=== PATIENT | male | born 1970 | race Caucasian/White ===

== ENCOUNTER 2016-03-01 18:18 | Emergency (ER) | payer MEDICAID ==
[~2016-03-01] VITALS: Ht 167.6 cm; Wt 59.5 kg
[~2016-03-01 18:18] MED LIST: FURO20TA PO; LACT20SO12 PO; LANT3I SC; MULTI PO; PANT40TA3 PO; SPIR50TA PO
[2016-03-01 18:40] VITALS: Ht 167.6 cm; Wt 59.5 kg
--- NOTE | 2016-03-01 20:19 | ERD ---
ER Documentation Chief Complaint Date/Time DATE: 03/01/16 TIME: 20:14 Chief Complaint right index finger laceration HPI This patient is a [id number] 45-year-old male with history of diabetes presenting to the emergency department for right second finger laceration which occurred while he was putting on a spare tire today around 4 PM. Patient's tetanus is not up-to-date. There is bleeding after the incident occurred but the patient was able to control it with pressure. He denies any numbness, tingling, loss of function, or other symptoms at this time. ROS All systems reviewed and are negative except as per history of present illness. Medications Home Meds Active Scripts Pantoprazole* (Protonix*) 40 Mg Tablet.dr, 40 MG PO BID for 30 Days, TAB Prov:JAMAL MORALES NP 01/15/16 Multivitamins* (Theragran*) 1 Tab Tab, 1 TAB PO DAILY for 30 Days, TAB Prov:JAMAL MORALES NP 01/15/16 Insulin Glargine* (Lantus*) 100 Unit/Ml Soln, 18 UNIT SC QHS for 30 Days, #1 VIAL Prov:JAMAL MORALES NP 01/15/16 Furosemide* (Lasix*) 20 Mg Tablet, 20 MG PO DAILY for 30 Days, TAB Prov:JAMAL MORALES NP 01/15/16 Spironolactone* (Aldactone*) 50 Mg Tablet, 50 MG PO DAILY for 30 Days, TAB Prov:JAMAL MORALES NP 01/15/16 Lactulose* (Cephulac*) 20 Gm/30 Ml Soln, 20 GM PO Q8 for 30 Days Prov:JAMAL MORALES NP 01/15/16 Allergies Allergies: Coded Allergies: No Known Allergy (Unverified , 03/01/16) PMhx/Soc History of Surgery: No Anesthesia Reaction: No Hx Neurological Disorder: No Hx Respiratory Disorders: No Hx Cardiac Disorders: No Hx Psychiatric Problems: No Hx Miscellaneous Medical Probl: Yes (DM) Hx Alcohol Use: Yes Hx Substance Use: No Hx Tobacco Use: Yes (2 t0 3 cigs a day) Smoking Status: Unknown if ever smoked FmHx Noncontributory for chief complaint Physical Exam Vitals Vital Signs Date Time Temp Pulse Resp B/P Pulse Ox O2 Delivery O2 Flow Rate FiO2 03/01/16 18:40 97.2 110 20 167/89 99 Physical Exam INITIAL VITAL SIGNS: Reviewed by me. GENERAL: Alert and interactive. No acute distress. HEAD: Head is normocephalic and atraumatic. EYES: EOMI. No scleral icterus. No conjunctival injection. ENT: Moist mucosa. NECK: Supple. Full range of motion. RESPIRATORY: Normal respiratory effort. Clear breath sounds bilaterally. No wheezing, rales, or rhonchi. CV: Regular rate and rhythm. Normal S1 S2. No S3 or S4. No murmurs. ABDOMEN: Soft, non-distended, non-tender. No guarding. No rebound. No masses. EXTREMITIES: No deformity. SKIN: 0.5 cm superficial laceration to the right finger with no active bleeding currently. There is no deformity of the finger. NEUROLOGIC: Alert and oriented x 4. Speech is normal. Moves all extremities equally. No motor or sensory deficits noted. Results 24 hrs Current Medications Medications (Trade) Dose Ordered Sig/Gallo Route PRN Reason Start Time Stop Time Status Last Admin Dose Admin Diphtheria/ Tetanus/Acell Pertussis (Adacel) 0.5 ml ONCE ONCE IM* 03/01/16 21:00 03/01/16 21:01 Procedures/MDM EMERGENCY DEPARTMENT COURSE / MEDICAL DECISION MAKING: This is a 45-year-old male who comes to the emergency room secondary to complaints of right second finger laceration which occurred today around 4 PM. On physical examination there is a 0.5 cm laceration to the right second finger but no active bleeding at this time. The wound was irrigated with Betadine solution in the department. The primary diagnosis is laceration of right second finger with repair.. Laceration Repair by me: Anesthesia: 1% lidocaine locally Location: Right second finger Tendon/Joint/Nerves: No injury Foreign body: None detected after copious irrigation and exploration Technique: Simple Interrupted Sutures Complexity: No subcutaneous sutures/mucosal repair/ edge excision Post Closure Length: 0.5 cm Patient's bleeding was easily controlled in the department and there is no indication of anemia. No evidence of compartment syndrome, neurologic injury, vascular injury, open joint, tendon laceration, or foreign body. Patient is appropriate for outpatient follow up. 48 hour wound check. Scar minimization instructions given. Discharge: I have discussed the lab results and diagnostic findings with the patient and answered any questions or concerns. The patient was discharged with a prescription for bacitracin and cephalexin. The patient was advised to followup with their PMD in 1-2 days and to return to the Emergency Department if there are any new or worsening symptoms. The patient understood and agreed with the diagnosis, treatment and plan. The patient is stable for discharge at this time. Departure Diagnosis: Primary Impression: Laceration Condition: Stable Patient Instructions: Laceration, Hand Additional Instructions: No mas mejor en 2-3 yun, regresar. Mas peor en 24 horas, regresear rapidamente. Ir a doctor primario in 5-7 yun. Usar instrucciones cuando jackie medicamento. BRAD TORRES PA-C Mar 01, 2016 20:19
[2016-03-01] MEDS ORDERED: BAC30OI TOP (21:00)
[2016-03-01] MEDS ORDERED: DIPHTH/TET/ACEL PERTUSS (ADULT) 0.5 ML VIAL IM* ONE (21:00)
[2016-03-01 21:20] VITALS: PULSE 66; RESP 20; TEMP 98
== END 2016-03-01 21:20 | disposition home or self-care (01) ==
LOC: FTE 18:18
DX: S61.210A Laceration without foreign body of right index finger without damage to nail, initial encounter (principal); E11.9 Type 2 diabetes mellitus without complications; W22.8XXA Striking against or struck by other objects, initial encounter; Y92.9 Unspecified place or not applicable; Z87.891 Personal history of nicotine dependence; Z23 Encounter for immunization; Z79.4 Long term (current) use of insulin
CPT/HCPCS: 12001; 90471; 90715; Z7502

== ENCOUNTER 2016-06-04 06:55 | Emergency (ER) | payer MEDICAID ==
[~2016-06-04] VITALS: Ht 167.6 cm; Wt 69.0 kg
[~2016-06-04 06:55] MED LIST changes: +BACI28.34 TOP; +FURO-110 PO; -FURO20TA PO
[2016-06-04 06:57] VITALS: Ht 167.6 cm; Wt 69.0 kg
[2016-06-04] MEDS ORDERED: OMEP20CA16 PO (07:09)
[2016-06-04] MEDS ORDERED: LORA-186 PO (07:09)
[2016-06-04] MEDS ORDERED: ACET325T33 PO (07:09)
--- NOTE | 2016-06-04 07:12 | ERD ---
ER Documentation Chief Complaint Date/Time DATE: 06/04/16 TIME: 07:11 Chief Complaint sore throat x 1 month,cough HPI This is a 45-year-old male with a history of DMII, upper GI bleeds, alcoholism who usually drinks 3 beers most days and smokes cigarettes presents to the emergency department with a chief complaint of constant, moderate painful sore throat for one month. Patient states it has not worsened but remains the same. He admits to mild cough some nights. He denies fever, vomiting, gross hematemesis, ear pain, congestion. He denies epigastric pain or dizziness. Patient has been here before for upper GI bleeds with admissions. Patient had upper endoscopy in the past with esophageal varices and variceal ligation. ROS All systems reviewed and are negative except as per history of present illness. Medications Home Meds Active Scripts Ranitidine Hcl* (Zantac*) 150 Mg Tablet, 150 MG PO QHS Y for EPIGASTRIC PAIN, # 30 TAB Prov:GABRIELE GARG PA-C 06/04/16 Acetaminophen* (Tylenol*) 325 Mg Tablet, 2 TAB PO Q6 Y for PAIN AND OR ELEVATED TEMP, #30 TAB Prov:GABRIELE GARG PA-C 06/04/16 Loratadine* (Claritin*) 10 Mg Tablet, 10 MG PO DAILY, #30 TAB Prov:GABRIELE GARG PA-C 06/04/16 Omeprazole* (Omeprazole*) 20 Mg Capsule., 20 MG PO DAILY, #30 Prov:GABRIELE GARG PA-C 06/04/16 Bacitracin* (Bacitracin Zinc Oint*) 28.35 Gm Oint, 1 APPLIC TOP BID for 5 Days, #1 TUB APPLI TO Prov:BRAD TORRES PA-C 03/01/16 Pantoprazole* (Protonix*) 40 Mg Tablet., 40 MG PO BID for 30 Days, TAB Prov:JAMAL MORALES NP 01/15/16 Multivitamins* (Theragran*) 1 Tab Tab, 1 TAB PO DAILY for 30 Days, TAB Prov:JAMAL MORALES NP 01/15/16 Insulin Glargine* (Lantus*) 100 Unit/Ml Soln, 18 UNIT SC QHS for 30 Days, #1 VIAL Prov:JAMAL MORALES [employer] 01/15/16 Furosemide* (Lasix*) 20 Mg Tablet, 20 MG PO DAILY for 30 Days, TAB Prov:JAMAL MORALES [employer] 01/15/16 Spironolactone* (Aldactone*) 50 Mg Tablet, 50 MG PO DAILY for 30 Days, TAB Prov:JAMAL MORALES [employer] 01/15/16 Lactulose* (Cephulac*) 20 Gm/30 Ml Soln, 20 GM PO Q8 for 30 Days Prov:JAMAL MORALES [employer] 01/15/16 Allergies Allergies: Coded Allergies: No Known Allergy (Unverified , 03/01/16) PMhx/Soc History of Surgery: No Anesthesia Reaction: No Hx Neurological Disorder: No Hx Respiratory Disorders: No Hx Cardiac Disorders: No Hx Psychiatric Problems: No Hx Miscellaneous Medical Probl: Yes (DM) Hx Alcohol Use: Yes Hx Substance Use: No Hx Tobacco Use: Yes (2 t0 3 cigs a day) Physical Exam Vitals Vital Signs Date Time Temp Pulse Resp B/P Pulse Ox O2 Delivery O2 Flow Rate FiO2 06/04/16 06:57 98.2 98 18 134/84 98 Physical Exam Const: WD/WN, no acute distress, non-toxic appearing Head: Atraumatic Eyes: Normal Conjunctiva ENT: Normal External Ears, Nose and Mouth. There was no evidence of exudates. Uvula was midline. Neck: Full range of motion..~ No meningismus. No lymphadenopathy Resp: Clear to auscultation bilaterally Cardio: Regular rate and rhythm, no murmurs Abd: Soft, non tender, non distended. Normal bowel sounds Skin: No petechiae or rashes Back: No midline or flank tenderness Ext: No cyanosis, or edema Neur: Awake and alert Psych: Normal Mood and Affect Results 24 hrs Laboratory Tests Test 06/04/16 07:36 Bedside Glucose 476mg/dL Current Medications Medications (Trade) Dose Ordered Sig/Gallo Route PRN Reason Start Time Stop Time Status Last Admin Dose Admin Miscellaneous Medication (Gi Cocktail (2)) 40 ml ONCE STAT PO 06/04/16 07:17 06/04/16 07:18 DC 06/04/16 07:25 Ranitidine HCl (Zantac) 150 mg ONCE STAT PO 06/04/16 07:17 06/04/16 07:25 DC Famotidine 20 mg 20 mg ONCE STAT PO 06/04/16 07:23 06/04/16 07:25 DC 06/04/16 07:27 Sodium Chloride (NS) 1,000 ml @ 1,000 mls/hr Q1H STAT IV 06/04/16 07:37 06/04/16 08:36 Procedures/MDM This is a 45-year-old male with a history of DMII, upper GI bleeds, alcoholism who usually drinks 3 beers most days and smokes cigarettes presents to the emergency department with a chief complaint of constant, moderate painful sore throat for one month. Patient has been here before for upper GI bleeds with admissions. Patient had upper endoscopy in the past with esophageal varices and variceal ligation. My differentials include but not limited to GERD versus chronic allergies. There was no evidence of strep pharyngitis, retropharyngeal abscess or peritonsillar abscess. In the ED patient was given a GI cocktail with Pepcid. A prescription for Prilosec to take every morning and Zantac to take every night was given along with Claritin. I have discussed with patient to follow-up with primary care and an ENT specialist. I have discussed to return to the ER for any worsening signs or symptoms. Patient understood and instructions have been given. However, upon asking the patient if he is compliant with his diabetic medications through his encounter, patient mentioned that in the past that a clinic has given him insulin for his diabetes, but when he was seen at [facility], they prescribed him tablets instead. He states has 8 pills left of an unknown tablet. An Accu-Chek was done and the result was 476. At this time, IV access is established and blood work was drawn. A urinalysis was ordered. I have ordered a liter of normal saline fluids to start however patient wanted to eloped, patient did not want to sign the AMA form and he walked out with previous discharge papers for his sore throat. The nurses and I have both discussed to the patient that it is very important to manage his blood sugar however he eloped. Departure Diagnosis: Primary Impression: Sore throat Additional Impression: Hyperglycemia Condition: Serious Patient Instructions: When You Have a Sore Throat, Understanding Gastritis, Self-Care for Sore Throats, Gastritis (Adult) Referrals: [facility] Usted se persaud hecho un examen mdico de control que le indica que no est en shazia condicin que requiera tratamiento urgente en el Departamento de Emergencia. Un estudio ms profundo y el tratamiento de shah condicin pueden esperar sin ningn riesgo hasta que usted sea atendida/o en el consultorio de shah mdico o shazia cl doron. Es responsabilidad suya arreglar shazia jevon para el seguimiento del iman. MANEJO DE CONDICIONES NO URGENTES EN EL FUTURO 1) Si usted tiene un mdico de atencin primaria: Usted debera llamar a shah mdico de atencin primaria antes de venir al departamento de emergencia. Despus de las horas de consultorio, shah doctor o shah asociado/a est disponible por telfono. El mdico o enfermero de segun en el servicio telefnico puede asesorarle por ta medio para atender el problema, o iman contrario se puede programar shazia jevon. 2) Si usted no tiene un mdico de atencin primaria: Llame al mdico o clnica de referencia que aparece abajo mena las horas de consultorio para hacer shazia jevon para que le vean. CLINICAS: [facility] [id number] [facility] [phone] [facility] [phone] [address] [facility]. [facility] [phone] [facility]. [place] [phone] [facility]. [phone] [address] Additional Instructions: Visite a shah mdico maana para un EXAMEN.Regrese a estas instalaciones si no se mejora joce esperbamos o joce le dijimos. Willow toda la medicina adali y joce se le indic. Specialist:Usted tiene shazia condicin mdica que requiere que anshul a un especialista dentro de los prximos 1-2 izaguirre.POR FAVOR,CON SHAH SEGUIMIENTO DE PRIMARIA PHSICIAN refferal. SI USTED NO TIENE UN MDICO GENERAL Y / O USTED NO PUEDE PAGAR gunner a un mdico,los siguientes cabello RECURSOS sido suministrado a usted. ES SHAH RESPONSABILIDAD PARA SER VISTOS POR EL ESPECIALISTA: Regrese a estas instalaciones si no se mejora joce esperbamos o joce le dijimos. GABRIELE GARG PA-C Jun 04, 2016 07:12
[2016-06-04] MEDS ORDERED: RANITIDINE 150 MG TAB PO STA (07:17)
[2016-06-04] MEDS ORDERED: LIDOCAINE/MYLANTA 40 ML BTL PO STA (07:17)
[2016-06-04] MEDS ORDERED: RANI150T9 PO (07:18)
[2016-06-04] MEDS ORDERED: FAMOTIDINE 20 MG TAB PO STA (07:23)
[2016-06-04] MEDS ORDERED: SOD CHLORIDE 0.9% 1,000 ML IV STA (07:37)
[2016-06-04 07:56] LABS: ADD SCAN DIFF NO
[2016-06-04 08:05] LABS: ABNORMAL IP MESSAGE 1; HEMATOCRIT 34.6 % (42.0-52.0); HEMOGLOBIN 10.4 g/dl (14.0-18.0); MEAN CORPUSCULAR HGB CONC 30.1 g/dl (32.0-37.0); MEAN CORPUSCULAR VOLUME 79.7 fl (82.0-101.0); MEAN PLATELET VOLUME 11.2 fl (7.4-10.4); PLATELET COUNT 93 10^3/UL (140-415); RED BLOOD COUNT 4.34 10^6/ul (4.70-6.10); RED CELL DISTRIBUTION WIDTH 20.3 % (11.5-14.5); WHITE BLOOD COUNT 5.1 10^3/ul (4.8-10.8)
[2016-06-04 08:08] LABS: ADD UMIC YES; URINE BILIRUBIN (Dip) NEGATIVE (NEGATIVE); URINE BLOOD (Dip) TRACE (NEGATIVE); URINE COLOR LT. YELLOW (YELLOW); URINE GLUCOSE (Dip) >=1000 % (NEGATIVE); URINE KETONES (Dip) NEGATIVE (NEGATIVE); URINE LEUKOCYTE ESTERASE (Dip) NEGATIVE (NEGATIVE); URINE NITRITE (Dip) NEGATIVE (NEGATIVE); URINE TOTAL PROTEIN (Dip) NEGATIVE (NEGATIVE); URINE UROBILINOGEN (Dip) 0.2 E.U./dL (0.1-1.0)
[2016-06-04 11:19] LABS: BASOPHIL # 0.2 10^3/ul (0.0-0.1); EOSINOPHILS # 1.3 10^3/ul (0.0-0.5); MONOCYTE # 0.4 10^3/ul (0.3-0.9); POLYCHROMASIA OCCASIONAL
[2016-06-04 12:16] LABS: ALBUMIN 3.5 g/dl (3.3-4.9); ALBUMIN/GLOBULIN RATIO 0.67; BILIRUBIN,INDIRECT 2.1 mg/dl (0-1.1); BILIRUBIN,TOTAL 2.1 mg/dl (0.2-1.3); CALCIUM 8.4 mg/dl (8.4-10.2); CREATININE 0.52 mg/dl (0.61-1.24); POTASSIUM 3.8 mmol/L (3.5-5.1); TOTAL PROTEIN 8.7 g/dl (6.1-8.1)
== END 2016-06-04 07:55 | disposition left against medical advice (07) ==
LOC: FTE 06:55
DX: J02.9 Acute pharyngitis, unspecified (principal); E11.65 Type 2 diabetes mellitus with hyperglycemia; F17.210 Nicotine dependence, cigarettes, uncomplicated; Z79.4 Long term (current) use of insulin
CPT/HCPCS: 80053; 81001; 82962; 83690; 85025; J7030; Z7502; Z7610; 81003; 99283

== ENCOUNTER 2016-11-07 00:07 | Emergency (ER) | payer MEDICAID ==
[~2016-11-07] VITALS: Ht 162.6 cm; Wt 59.5 kg
[~2016-11-07 00:07] MED LIST changes: +ACET325T33 PO; +LORA-186 PO; +OMEP20CA16 PO; +RANI150T9 PO
[2016-11-07 00:09] VITALS: Ht 162.6 cm; Wt 59.5 kg
[2016-11-07] MEDS ORDERED: SOD CHLORIDE 0.9% 1,000 ML IV STA ×2 (00:23→01:19)
[2016-11-07] MEDS ORDERED: PANTOPRAZOLE 40 MG INJ IV ONE (00:30)
[2016-11-07 00:55] LABS: ABNORMAL IP MESSAGE 1; BASOPHIL # 0.1 10^3/ul (0.0-0.1); BASOPHILS % 1.7 % (0.0-2.0); EOSINOPHILS # 1.2 10^3/ul (0.0-0.5); EOSINOPHILS % 15.2 % (0.0-7.0); HEMATOCRIT 30.8 % (42.0-52.0); LYMPHOCYTES # 1.3 10^3/ul (0.8-2.9); LYMPHOCYTES % 15.9 % (15.0-51.0); MEAN CORPUSCULAR HEMOGLOBIN 28.6 pg (29.0-33.0); MEAN CORPUSCULAR HGB CONC 32.5 g/dl (32.0-37.0); MEAN PLATELET VOLUME 12.1 fl (7.4-10.4); MONOCYTE # 1.2 10^3/ul (0.3-0.9); MONOCYTES % 14.4 % (0.0-11.0); NEUTROPHIL # 4.2 10^3/ul (1.6-7.5); NEUTROPHILS % 51.8 % (39.0-77.0); PLATELET COUNT 77 10^3/UL (140-415); POSITIVE DIFF @See below
[2016-11-07 01:07] LABS: INR 1.29; PROTIME 16.2 Sec (12.2-14.2); PT RATIO 1.3
[2016-11-07 01:10] LABS: ALBUMIN 3.1 g/dl (3.3-4.9); ALBUMIN/GLOBULIN RATIO 0.62; BILIRUBIN,DIRECT 0.1 mg/dl (0.00-0.20); BILIRUBIN,INDIRECT 1.1 mg/dl (0-1.1); BILIRUBIN,TOTAL 1.2 mg/dl (0.2-1.3); CALCIUM 8.2 mg/dl (8.4-10.2); CREATININE 0.51 mg/dl (0.61-1.24); POTASSIUM 3.6 mmol/L (3.5-5.1); TOTAL PROTEIN 8.1 g/dl (6.1-8.1)
[2016-11-07 01:17] LABS: ADD UMIC YES; UR ASCORBIC ACID NEGATIVE (NEGATIVE); UR BILIRUBIN (Dip) NEGATIVE (NEGATIVE); UR BLOOD (Dip) 1+ mg/dL (NEGATIVE); UR CLARITY CLEAR (CLEAR); UR COLOR YELLOW (YELLOW); UR GLUCOSE (Dip) 3+ mg/dL (NEGATIVE); UR KETONES (Dip) NEGATIVE (NEGATIVE); UR LEUKOCYTE ESTERASE (Dip) NEGATIVE Leu/ul (NEGATIVE); UR NITRITE (Dip) NEGATIVE (NEGATIVE); UR RBC 1 /HPF (0-5); UR TOTAL PROTEIN (Dip) NEGATIVE (NEGATIVE); UR UROBILINOGEN (Dip) 2+ mg/dL (NEGATIVE)
[2016-11-07] MEDS ORDERED: FAMO-96 PO (01:25)
[2016-11-07] MEDS ORDERED: PANT40TA3 PO (01:25)
[2016-11-07] MEDS ORDERED: ONDA4TAB8 PO (01:25)
--- NOTE | 2016-11-07 01:25 | ERD ---
ER Documentation Chief Complaint Date/Time DATE: 11/07/16 TIME: 01:23 Chief Complaint black tarry stools, upper abd pain HPI This is a 46-year-old male presents to the emergency room for evaluation of dark stools. The patient does state that he drinks alcohol every day and states that he noticed dark stools for 1 days duration. He came to the ER today for evaluation and stated he was having some abdominal cramping however that has resolved. He states he drinks approximately 4 beers a day. He denies any other illicit drug use and denies any trauma to his abdomen. ROS All systems reviewed and are negative except as per history of present illness. Medications Home Meds Active Scripts Ranitidine Hcl* (Zantac*) 150 Mg Tablet, 150 MG PO QHS Y for EPIGASTRIC PAIN, # 30 TAB Prov:GABRIELE GARG PA-C 06/04/16 Acetaminophen* (Tylenol*) 325 Mg Tablet, 2 TAB PO Q6 Y for PAIN AND OR ELEVATED TEMP, #30 TAB Prov:GABRIELE GARG PA-C 06/04/16 Loratadine* (Claritin*) 10 Mg Tablet, 10 MG PO DAILY, #30 TAB Prov:GABRIELE GARG PA-C 06/04/16 Omeprazole* (Omeprazole*) 20 Mg Capsule., 20 MG PO DAILY, #30 Prov:GABRIELE GARG PA-C 06/04/16 Bacitracin* (Bacitracin Zinc Oint*) 28.35 Gm Oint, 1 APPLIC TOP BID for 5 Days, #1 TUB APPLI TO Prov:BARD TORRES PA-C 03/01/16 Pantoprazole* (Protonix*) 40 Mg Tablet., 40 MG PO BID for 30 Days, TAB Prov:JAMAL MORALES NP 01/15/16 Multivitamins* (Theragran*) 1 Tab Tab, 1 TAB PO DAILY for 30 Days, TAB Prov:JAMAL MORALES NP 01/15/16 Insulin Glargine* (Lantus*) 100 Unit/Ml Soln, 18 UNIT SC QHS for 30 Days, #1 VIAL Prov:JAMAL MORALES NP 01/15/16 Furosemide* (Lasix*) 20 Mg Tablet, 20 MG PO DAILY for 30 Days, TAB Prov:JAMAL MORALES MACHINE WELDER 01/15/16 Spironolactone* (Aldactone*) 50 Mg Tablet, 50 MG PO DAILY for 30 Days, TAB Prov:JAMAL MORALES MACHINE WELDER 01/15/16 Lactulose* (Cephulac*) 20 Gm/30 Ml Soln, 20 GM PO Q8 for 30 Days Prov:JAMAL MORALES MACHINE WELDER 01/15/16 Allergies Allergies: Coded Allergies: No Known Allergy (Unverified , 03/01/16) PMhx/Soc History of Surgery: No Anesthesia Reaction: No Hx Neurological Disorder: No Hx Respiratory Disorders: No Hx Cardiac Disorders: No Hx Psychiatric Problems: No Hx Alcohol Use: Yes Hx Substance Use: No Hx Tobacco Use: Yes Smoking Status: Smoker,current status unk Physical Exam Vitals Vital Signs Date Time Temp Pulse Resp B/P Pulse Ox O2 Delivery O2 Flow Rate FiO2 11/07/16 00:43 97 20 155/97 100 Room Air 11/07/16 00:09 97.8 110 20 140/80 100 Physical Exam INITIAL VITAL SIGNS: Reviewed by me GENERAL: The patient is well developed and appropriate for usual state of health in no apparent distress HEENT: Pupils equal, round, and reactive to light. EOMI. There is no scleral icterus. NECK: C-spine is soft and supple, there is no meningismus. There is no cervical lymphadenopathy. LUNGS: Clear to auscultation bilaterally. There are no rales, wheezes or rhonchi. HEART tachycardic, no murmurs, clicks, rubs or gallops. ABDOMEN: Soft, non-tender, non-distended. There are bowel sounds in all four quadrants. No rebound or guarding. EXTREMITIES: There is no peripheral cyanosis or edema. No focal swelling or erythema. NEUROLOGICAL: The patient moves all four extremities with 5/5 strength. Cranial nerves II - XII are intact. Normal gait. Alert and oriented SKIN: There is no apparent rash or petechiae. HEME/LYMPHATIC: There is no evidence of excessive bruising or lymphedema. PSYCHIATRIC: The patient does not appear anxious or depressed. Result Diagram: 11/07/16 0039 11/07/16 0039 Results 24 hrs Laboratory Tests Test 11/07/16 00:30 9/29/17 00:39 Urine Color YELLOW Urine Clarity CLEAR Urine pH 6.0 Urine Specific [place] 1.020 Urine Ketones NEGATIVEmg/dL Urine Nitrite NEGATIVEmg/dL Urine Bilirubin NEGATIVEmg/dL Urine Urobilinogen 2+mg/dL Urine Leukocyte Esterase NEGATIVELeu/ul Urine Microscopic RBC 1/HPF Urine Microscopic WBC 1/HPF Urine Hemoglobin 1+mg/dL Urine Glucose 3+mg/dL Urine Total Protein NEGATIVEmg/dl White Blood Count 8.010^3/ul Red Blood Count 3.5010^6/ul Hemoglobin 10.0g/dl Hematocrit 30.8% Mean Corpuscular Volume 88.0fl Mean Corpuscular Hemoglobin 28.6pg Mean Corpuscular Hemoglobin Concent 32.5g/dl Red Cell Distribution Width 17.0% Platelet Count 7710^3/UL Mean Platelet Volume 12.1fl Neutrophils % 51.8% Lymphocytes % 15.9% Monocytes % 14.4% Eosinophils % 15.2% Basophils % 1.7% Nucleated Red Blood Cells % 0.0/100WBC Neutrophils # 4.210^3/ul Lymphocytes # 1.310^3/ul Monocytes # 1.210^3/ul Eosinophils # 1.210^3/ul Basophils # 0.110^3/ul Nucleated Red Blood Cells # 0.010^3/ul Prothrombin Time 16.2Sec Prothrombin Time Ratio 1.3 INR International Normalized Ratio 1.29 Activated Partial Thromboplast Time 30.0Sec Sodium Level 132mmol/L Potassium Level 3.6mmol/L Chloride Level 100mmol/L Carbon Dioxide Level 23mmol/L Anion Gap 13 Blood Urea Nitrogen 10mg/dl Creatinine 0.51mg/dl Glucose Level 281mg/dl Calcium Level 8.2mg/dl Total Bilirubin 1.2mg/dl Direct Bilirubin 0.10mg/dl Indirect Bilirubin 1.1mg/dl Aspartate Amino Transf (AST/SGOT) 88IU/L Alanine Aminotransferase (ALT/SGPT) 55IU/L Alkaline Phosphatase 556IU/L Total Protein 8.1g/dl Albumin 3.1g/dl Globulin 5.00g/dl Albumin/Globulin Ratio 0.62 Lipase 258U/L Current Medications Medications (Trade) Dose Ordered Sig/Gallo Route PRN Reason Start Time Stop Time Status Last Admin Dose Admin Sodium Chloride (NS) 1,000 ml @ 1,000 mls/hr Q1H STAT IV 11/07/16 00:23 11/07/16 01:22 DC 11/07/16 00:43 Pantoprazole 40 mg 40 mg ONCE ONCE IV 11/07/16 00:30 11/07/16 00:31 DC 11/07/16 00:43 Sodium Chloride (NS) 1,000 ml @ 1,000 mls/hr Q1H STAT IV 11/07/16 01:19 11/07/16 02:18 Procedures/MDM This 46-year-old male presents to the ER for evaluation of dark stools. When I evaluated this patient he did have mild tachycardia. Patient was given 2 L of fluid. Blood work was obtained which shows a hemoglobin of 10. This patient does state he drinks every day and likely suffering from alcoholic gastritis which is causing erosive changes. The patient was given Protonix in the emergency room. He is hemodynamically stable at this time. I advised him to discontinue use of alcohol and he will be discharged home with a prescription for Pepcid, Protonix, and Zofran. Smoking Cessation Therapy: Pt. was lectured for greater than 3 minutes on the health risks of continued smoking and the benefits of cessation. Departure Diagnosis: Primary Impression: Alcohol abuse Additional Impression: Alcoholic gastritis Condition: Stable SAAD CHILDRESS DO Nov 07, 2016 01:25
[2016-11-07 02:12] VITALS: BP 145/97; PULSE 91; RESP 20
== END 2016-11-07 02:12 | disposition home or self-care (01) ==
LOC: E/R 00:07
DX: F10.10 Alcohol abuse, uncomplicated (principal); K29.20 Alcoholic gastritis without bleeding; Z79.4 Long term (current) use of insulin; Z87.891 Personal history of nicotine dependence
CPT/HCPCS: 36415; 80053; 81001; 83690; 85025; 85610; 85730; 96374; C9113; J7030; Z7502

== ENCOUNTER 2016-11-30 17:45 | Emergency (ER) | payer MEDICAID ==
[~2016-11-30] VITALS: Wt 66.0 kg
[~2016-11-30 17:45] MED LIST changes: +FAMO-96 PO; +ONDA4TAB8 PO
[2016-11-30 17:46] VITALS: Wt 66.0 kg
[2016-11-30] MEDS ORDERED: FUROSEMIDE 40 MG INJ IV ONE (21:30)
--- NOTE | 2016-11-30 21:32 | ERD ---
ER Documentation Chief Complaint Chief Complaint MARY FOOT SWELLING X 2 WEEKS HPI 46-year-old man with a history of alcoholic induced cirrhosis and prior peripheral edema presents with 2 weeks of bilateral lower extremity edema. He denies chest pain or shortness of breath, no blood per rectum or melena, no headache or blurry vision. He denies using medications for the symptoms. Patient denies recent alcohol intake, denies suicidal homicidal ideation. ROS All systems reviewed and are negative except as per history of present illness. Medications Home Meds Active Scripts Lactulose* (Lactulose*) 10 Gm/15 Ml Solution, 10 GM PO BID for 5 Days, #150 ML Prov:HENRY CHAPARRO MD 11/30/16 Furosemide* (Lasix*) 20 Mg Tablet, 20 MG PO DAILY for 5 Days, #5 TAB Prov:HENRY CHAPARRO MD 11/30/16 Ondansetron Hcl* (Zofran*) 4 Mg Tablet, 4 MG PO Q8 for 3 Days, TAB Prov:SAAD CHILDRESS DO 11/07/16 Famotidine* (Pepcid*) 20 Mg Tablet, 20 MG PO BID for 14 Days, TAB Prov:SAAD CHILDRESS DO 11/07/16 Pantoprazole* (Protonix*) 40 Mg Tablet., 40 MG PO DAILY, #20 TAB Prov:SAAD CHILDRESS DO 11/07/16 Ranitidine Hcl* (Zantac*) 150 Mg Tablet, 150 MG PO QHS Y for EPIGASTRIC PAIN, # 30 TAB Prov:GABRIELE GARG PA-C 06/04/16 Acetaminophen* (Tylenol*) 325 Mg Tablet, 2 TAB PO Q6 Y for PAIN AND OR ELEVATED TEMP, #30 TAB Prov:GABRIELE GARG PA-C 06/04/16 Loratadine* (Claritin*) 10 Mg Tablet, 10 MG PO DAILY, #30 TAB Prov:GABRIELE GARG PA-C 06/04/16 Omeprazole* (Omeprazole*) 20 Mg Capsule., 20 MG PO DAILY, #30 Prov:GABRIELE GARG PA-C 06/04/16 Bacitracin* (Bacitracin Zinc Oint*) 28.35 Gm Oint, 1 APPLIC TOP BID for 5 Days, #1 TUB APPLI TO Prov:BRAD TORRES PA-C 03/01/16 Pantoprazole* (Protonix*) 40 Mg Tablet.dr, 40 MG PO BID for 30 Days, TAB Prov:JAMAL MORALES NP 01/15/16 Multivitamins* (Theragran*) 1 Tab Tab, 1 TAB PO DAILY for 30 Days, TAB Prov:JAMAL MORALES NP 01/15/16 Insulin Glargine* (Lantus*) 100 Unit/Ml Soln, 18 UNIT SC QHS for 30 Days, #1 VIAL Prov:JAMAL MORALES NP 01/15/16 Furosemide* (Lasix*) 20 Mg Tablet, 20 MG PO DAILY for 30 Days, TAB Prov:JAMAL MORALES NP 01/15/16 Spironolactone* (Aldactone*) 50 Mg Tablet, 50 MG PO DAILY for 30 Days, TAB Prov:JAMAL MORALES NP 01/15/16 Lactulose* (Cephulac*) 20 Gm/30 Ml Soln, 20 GM PO Q8 for 30 Days Prov:JAMAL MORALES NP 01/15/16 Allergies Allergies: Coded Allergies: No Known Allergy (Unverified , 03/01/16) PMhx/Soc History of upper gastrointestinal bleeding secondary to esophageal varices status post ligation, coagulopathy, alcoholic liver cirrhosis, anemia, diabetes mellitus, hypertension, alcoholism, drug abuse History of Surgery: No Anesthesia Reaction: No Hx Neurological Disorder: No Hx Respiratory Disorders: No Hx Cardiac Disorders: No Hx Psychiatric Problems: No Hx Alcohol Use: Yes Hx Substance Use: No Hx Tobacco Use: Yes Smoking Status: Current every day smoker FmHx Family History: No diabetes Physical Exam Vitals Vital Signs Date Time Temp Pulse Resp B/P Pulse Ox O2 Delivery O2 Flow Rate FiO2 11/30/16 23:30 99.4 72 18 122/71 99 Room Air 11/30/16 17:46 99.4 99 18 113/69 96 Physical Exam GENERAL: Well-developed, well-nourished, well-hydrated, in no apparent distress , looks nontoxic in appearance HEENT: Moist mucous membranes, pink conjunctiva, no cervical spine tenderness or step-off deformities, no goiter, no jaundice or icterus, extraocular movements intact without pain. No submandibular induration, and no pharyngeal erythema NEURO: Alert and oriented 3, cranial nerves II through XII intact bilaterally, pupils equal round reactive to light, no focal deficits or facial asymmetry, sensation intact distally Strength 5/5 in upper and lower extremities bilaterally CARDIAC: Regular rate and rhythm, no murmurs rubs or gallops LUNGS: Clear bilaterally no wheezing crackles or stridor ABDOMEN: Soft nontender, no guarding, no rigidity, no rebound, no psoas sign no obturator sign. Normoactive bowel sounds SKIN: Warm and dry to touch, no abrasions, contusions, or hematomas, no lacerations, no ecchymosis, no target lesions, and without ulcers EXTREMITIES: No clubbing cyanosis, 3+ pitting edema in the lower extremities bilaterally, calves are bilaterally symmetrical, no Homans sign, no popliteal cord sign. Distal pulses equal and bilateral PSYCH: Normal affect without agitation or irritability Result Diagram: 11/30/16214411/30/162144 Results 24 hrs Laboratory Tests Test 11/30/16 21:45 White Blood Count 9.310^3/ul Red Blood Count 3.0610^6/ul Hemoglobin 7.7g/dl Hematocrit 24.6% Mean Corpuscular Volume 80.4fl Mean Corpuscular Hemoglobin 25.2pg Mean Corpuscular Hemoglobin Concent 31.3g/dl Red Cell Distribution Width 19.9% Platelet Count 23161^3/UL Mean Platelet Volume 9.5fl Neutrophils % 44.1% Lymphocytes % 12.2% Monocytes % 17.8% Eosinophils % 24.5% Basophils % 1.0% Nucleated Red Blood Cells % 0.0/100WBC Neutrophils # 4.110^3/ul Lymphocytes # 1.110^3/ul Monocytes # 1.710^3/ul Eosinophils # 2.310^3/ul Basophils # 0.110^3/ul Nucleated Red Blood Cells # 0.010^3/ul Prothrombin Time 16.5Sec Prothrombin Time Ratio 1.3 INR International Normalized Ratio 1.32 Sodium Level 130mmol/L Potassium Level 3.5mmol/L Chloride Level 101mmol/L Carbon Dioxide Level 22mmol/L Anion Gap 11 Blood Urea Nitrogen 6mg/dl Creatinine 0.50mg/dl Glucose Level 171mg/dl Calcium Level 7.3mg/dl Total Bilirubin 0.9mg/dl Direct Bilirubin 0.00mg/dl Indirect Bilirubin 0.9mg/dl Aspartate Amino Transf (AST/SGOT) 64IU/L Alanine Aminotransferase (ALT/SGPT) 46IU/L Alkaline Phosphatase 339IU/L Ammonia 41umol/l Troponin I < 0.012ng/ml Total Protein 6.5g/dl Albumin 2.3g/dl Globulin 4.20g/dl Albumin/Globulin Ratio 0.54 Lipase 145U/L Current Medications Medications (Trade) Dose Ordered Sig/Gallo Route PRN Reason Start Time Stop Time Status Last Admin Dose Admin Furosemide 60 mg 60 mg ONCE ONCE IV 11/30/16 21:30 11/30/16 21:31 DC 11/30/16 21:44 Calcium Gluconate/ Sodium Chloride (Ca Gluc/NS) 110 ml @ 110 mls/hr ONCE ONCE IVPB 11/30/16 23:00 11/30/16 23:59 DC 11/30/16 23:01 Procedures/MDM IV line was established patient was placed on monitoring engineer rhythm strip revealed a sinus rhythm at about 80 bpm with upright P and T waves. Patient was afebrile. EKG performed, read by me revealed a normal sinus rhythm at 76 bpm, normal axis , narrow QRS complex with no concerning ST elevations or depressions noted. Prolonged QT of 510 ms. One view chest x-ray performed, read by me revealed atelectatic changes bilaterally, no acute infiltrates, no pneumothorax. I administered furosemide 60 mg IV 1 for diuresis. CBC revealed anemia of 7.7, electrolytes are unremarkable, liver function tests normal, troponin negative, calcium was low at 7.3, ammonia elevated at 41. Patient also received calcium gluconate 1 g IV for acute hypocalcemia. Patient is asymptomatic at this time although he does have significant anemia I told him to return in 2 days for repeat CBC or earlier if he develops any form of bleeding. He denies prior blood transfusion and denies dizziness, loss of consciousness, weakness, or shortness of breath so have no indication at this time for PRBC IV transfusion given his hemoglobin is over 7. Differential diagnoses considered, included but not limited to acute coronary syndrome, pulmonary embolism, aortic dissection, abdominal aortic aneurysm, sepsis, stroke, meningitis, encephalitis, pneumonia, appendicitis, cholecystitis , bowel obstruction, pyelonephritis, nephrolithiasis, cystitis, as well as metabolic, hematologic, and electrolyte abnormalities. As well as abscess, cellulitis, fractures, and dislocations. Patient feels much better at this time, and vital signs are normal, symptoms have improved. I did tell him to return here in 2 days for repeat or earlier if he develops blood per rectum, melena, or hematemesis. I did give strict instructions to return to the ED if symptoms continue or worsen, patient will otherwise follow-up with primary care physician. Patient understood instructions and agreed to plan. Disclaimer: Inadvertent spelling and grammatical errors are likely due to EHR/ dictation software use and do not reflect on the overall quality of patient care. Also, please note that the electronic time recorded on this note does not necessarily reflect the actual time of the patient encounter. Departure Diagnosis: Primary Impression: Anemia Anemia type: unspecified type Qualified Code: D64.9 - Anemia, unspecified type Additional Impressions: Cirrhosis Hepatic cirrhosis type: alcoholic cirrhosis Ascites presence: without ascites Qualified Code: K70.30 - Alcoholic cirrhosis of liver without ascites Peripheral edema Hypocalcemia Hyperammonemia Condition: HENRY Araiza MD Nov 30, 2016 21:32
[2016-11-30 22:02] LABS: ABNORMAL IP MESSAGE 1; BASOPHIL # 0.1 10^3/ul (0.0-0.1); EOSINOPHILS # 2.3 10^3/ul (0.0-0.5); EOSINOPHILS % 24.5 % (0.0-7.0); HEMATOCRIT 24.6 % (42.0-52.0); HEMOGLOBIN 7.7 g/dl (14.0-18.0); LYMPHOCYTES # 1.1 10^3/ul (0.8-2.9); LYMPHOCYTES % 12.2 % (15.0-51.0); MEAN CORPUSCULAR HEMOGLOBIN 25.2 pg (29.0-33.0); MEAN CORPUSCULAR HGB CONC 31.3 g/dl (32.0-37.0); MEAN CORPUSCULAR VOLUME 80.4 fl (82.0-101.0); MEAN PLATELET VOLUME 9.5 fl (7.4-10.4); MONOCYTE # 1.7 10^3/ul (0.3-0.9); MONOCYTES % 17.8 % (0.0-11.0); NEUTROPHIL # 4.1 10^3/ul (1.6-7.5); NEUTROPHILS % 44.1 % (39.0-77.0); PLATELET COUNT 153 10^3/UL (140-415); POSITIVE DIFF @See below; RED BLOOD COUNT 3.06 10^6/ul (4.70-6.10); RED CELL DISTRIBUTION WIDTH 19.9 % (11.5-14.5); WHITE BLOOD COUNT 9.3 10^3/ul (4.8-10.8)
[2016-11-30 22:24] LABS: ALANINE AMINOTRANSFERASE 46 IU/L (13-69); ALBUMIN 2.3 g/dl (3.3-4.9); ALBUMIN/GLOBULIN RATIO 0.54; ALKALINE PHOSPHATASE 339 IU/L (42-121); ANION GAP 11 (8-16); ASPARTATE AMINO TRANSFERASE 64 IU/L (15-46); BILIRUBIN,INDIRECT 0.9 mg/dl (0-1.1); BILIRUBIN,TOTAL 0.9 mg/dl (0.2-1.3); BLOOD UREA NITROGEN 6 mg/dl (7-20); CALCIUM 7.3 mg/dl (8.4-10.2); CARBON DIOXIDE 22 mmol/L (21-31); CHLORIDE 101 mmol/L (97-110); GLUCOSE 171 mg/dl (70-220); POTASSIUM 3.5 mmol/L (3.5-5.1); SODIUM 130 mmol/L (135-144); TOTAL PROTEIN 6.5 g/dl (6.1-8.1)
[2016-11-30 22:32] LABS: INR 1.32; PROTIME 16.5 Sec (12.2-14.2); PT RATIO 1.3
--- NOTE | 2016-11-30 22:34 | RADRPT ---
PROCEDURE: XR Chest. CLINICAL INDICATION: Abdominal pain. TECHNIQUE: Single frontal view of the chest. COMPARISON: 02/12/2015. FINDINGS: The cardiomediastinal silhouette is within normal limits. Interval peripheral right lung air space d isease at the mid lung and lung base. The lungs otherwise clear. No signs of pleural fluid or pneumo thorax are seen. The osseous structures and soft tissues are unremarkable. IMPRESSION: Interval mild peripheral right mid lung and lung base pneumonia. RPTAT: [facility] Physician Candi Date Time Electronically viewed and signed by Krish Guerin Physician on 11/30/2016 22:34 RS/
[2016-11-30 22:39] LABS: TROPONIN-I < 0.012 ng/ml (0.00-0.12)
[2016-11-30] MEDS ORDERED: FURO-110 PO (22:59)
[2016-11-30] MEDS ORDERED: CALCIUM GLUCONATE 10% 1 GM in SOD CHLORIDE 0.9% 100 ML IVPB ONE (23:00)
[2016-11-30] MEDS ORDERED: LACT10SO5 PO (23:06)
[2016-11-30 23:30] VITALS: BP 122/71; PULSE 72; RESP 18; TEMP 99.4
== END 2016-12-01 00:38 | disposition home or self-care (01) ==
LOC: E/R 17:45
DX: D64.9 Anemia, unspecified (principal); K70.30 Alcoholic cirrhosis of liver without ascites; E83.51 Hypocalcemia; E72.20 Disorder of urea cycle metabolism, unspecified; I10 Essential (primary) hypertension; E11.9 Type 2 diabetes mellitus without complications; F17.210 Nicotine dependence, cigarettes, uncomplicated; Z79.4 Long term (current) use of insulin
CPT/HCPCS: 36415; 71010; 80053; 82140; 83690; 84484; 85025; 85610; 93005; 96374; 96375; J0610; J1940; Z7502; Z7610

== ENCOUNTER 2016-12-12 12:58 | Emergency (ER) | payer MEDICAID ==
[~2016-12-12] VITALS: Ht 170.2 cm; Wt 55.9 kg
[~2016-12-12 12:58] MED LIST changes: +LACT10SO5 PO
[2016-12-12 13:04] VITALS: Ht 170.2 cm; Wt 55.9 kg
--- NOTE | 2016-12-12 13:42 | ERD ---
ER Documentation Chief Complaint Chief Complaint R EYE VISION CLOUDY HPI 46y/o male patient with history of diabetes,presents to the emergency department c/o right eye foreign body sensation associated with blurred vision for 3 days after some dust got into his eye. pain is sharp, rated 6/10. Denies headache, fever, chills, N/V/D. No history of previous episodes. Treatment attempted: None ROS All systems reviewed and are negative except as per history of present illness. Medications Home Meds Active Scripts Hydrocodone/Acetaminophen ([place] 5-325 Tablet) 1 Each Tablet, 1 EACH PO TID, # 12 TAB Prov:OTTONIEL CABRAL MD 12/12/16 Tobramycin-Dexamethasone* (Tobradex* Ophth) 0.3%-0.1% Soln, 1 DROP LEFT EYE Q2HWA for 7 Days, EA Prov:OTTONIEL CABRAL MD 12/12/16 Lactulose* (Lactulose*) 10 Gm/15 Ml Solution, 10 GM PO BID for 5 Days, #150 ML Prov:HENRY CHAPARRO MD 11/30/16 Furosemide* (Lasix*) 20 Mg Tablet, 20 MG PO DAILY for 5 Days, #5 TAB Prov:HENRY CHAPARRO MD 11/30/16 Ondansetron Hcl* (Zofran*) 4 Mg Tablet, 4 MG PO Q8 for 3 Days, TAB Prov:SAAD CHILDRESS DO 11/07/16 Famotidine* (Pepcid*) 20 Mg Tablet, 20 MG PO BID for 14 Days, TAB Prov:SAAD CHILDRESS DO 11/07/16 Pantoprazole* (Protonix*) 40 Mg Tablet.dr, 40 MG PO DAILY, #20 TAB Prov:SAAD CHILDRESS DO 11/07/16 Ranitidine Hcl* (Zantac*) 150 Mg Tablet, 150 MG PO QHS Y for EPIGASTRIC PAIN, # 30 TAB Prov:GABRIELE GARG PA-C 06/04/16 Acetaminophen* (Tylenol*) 325 Mg Tablet, 2 TAB PO Q6 Y for PAIN AND OR ELEVATED TEMP, #30 TAB Prov:GABRIELE GARG PA-C 06/04/16 Loratadine* (Claritin*) 10 Mg Tablet, 10 MG PO DAILY, #30 TAB Prov:GABRIELE GARG PA-C 06/04/16 Omeprazole* (Omeprazole*) 20 Mg Capsule., 20 MG PO DAILY, #30 Prov:GABRIELE GARG PA-C 06/04/16 Bacitracin* (Bacitracin Zinc Oint*) 28.35 Gm Oint, 1 APPLIC TOP BID for 5 Days, #1 TUB APPLI TO Prov:BRAD TORRES PA-C 03/01/16 Pantoprazole* (Protonix*) 40 Mg Tablet., 40 MG PO BID for 30 Days, TAB Prov:JAMAL MORALES NP 01/15/16 Multivitamins* (Theragran*) 1 Tab Tab, 1 TAB PO DAILY for 30 Days, TAB Prov:JAMAL MORALES NP 01/15/16 Insulin Glargine* (Lantus*) 100 Unit/Ml Soln, 18 UNIT SC QHS for 30 Days, #1 VIAL Prov:JAMAL MORALES NP 01/15/16 Furosemide* (Lasix*) 20 Mg Tablet, 20 MG PO DAILY for 30 Days, TAB Prov:JAMAL MORALES NP 16 Spironolactone* (Aldactone*) 50 Mg Tablet, 50 MG PO DAILY for 30 Days, TAB Prov:JAMAL MORALES NP 16 Lactulose* (Cephulac*) 20 Gm/30 Ml Soln, 20 GM PO Q8 for 30 Days Prov:JAMAL MORALES NP 01/15/16 Allergies Allergies: Coded Allergies: No Known Allergy (Unverified , 03/01/16) PMhx/Soc History of Surgery: No Anesthesia Reaction: No Hx Neurological Disorder: No Hx Respiratory Disorders: No Hx Cardiac Disorders: No Hx Psychiatric Problems: No Hx Miscellaneous Medical Probl: Yes (DM, liver issues does not know what he has ) Hx Alcohol Use: Yes Hx Substance Use: No Hx Tobacco Use: Yes Physical Exam Vitals Vital Signs Date Time Temp Pulse Resp B/P Pulse Ox O2 Delivery O2 Flow Rate FiO2 12/12/16 13:04 98.6 104 20 128/60 98 Physical Exam Const: Alert, hydrated, in mild distress Head: Atraumatic Eyes: OS: 3 mm abrasion at the 7 o'clock, with peripheral haziness. No dendritic ulcer seen ENT: Normal External Ears, Nose and Mouth. Neck: Full range of motion..~ No meningismus. Resp: Clear to auscultation bilaterally Cardio: Regular rate and rhythm, no murmurs Results 24 hrs Current Medications Medications (Trade) Dose Ordered Sig/Gallo Route PRN Reason Start Time Stop Time Status Last Admin Dose Admin Tobramycin/ Dexamethasone (Tobradex Oph Drop) 2 drop ONCE ONCE RIGHT EYE 12/12/16 14:30 12/12/16 14:31 DC 12/12/16 15:09 Procedures/MDM 46y/o male patient with a history of diabetes mellitus, alcohol abuse, presents to the ED c/o left eye pain and foreign body sensation for 3 days. Vital signs stable, Physical exam showed well-defined abrasion on the left cornea, with inflammatory changes. Differential diagnosis include but not limited to: Keratitis, corneal ulcer, herpetic ulcer, foreign body. Physical examination and clinical presentation consistent most likely with infected corneal abrasion. During the ED course the patient received treatment with TobraDex. Medical impression discussed with patient who agrees with management. The patient will be discharged home with a Rx for TobraDex. The patient was instructed to have a follow-up in 48 hours with her doctor or here in the ER If symptoms worsen then return to the ED immediately. Departure Diagnosis: Primary Impression: Infected corneal abrasion Condition: Stable Additional Instructions: Muchas oziel por [facility] para toro servicio. Esperamos que en toro visita a la juan carlos de emergencia toro problema medico haya sido solucionado y que se sienta mucho mejor. Para estar seguros que toro mejoria sigue en proceso, le pedimos el favor de hacer shazia jevon de seguimiento medico con toro doctor primario en los proximos 2-4 yun. Lleve con usted estos documentos y las medicinas recetadas. Si jimmy sintomas empeoran y no puede gunner a toro doctor, por favor regrese a juan carlos de emergencia. En iman que usted no tenga un mdico de atencin primaria: Llame al mdico o clnica comunitaria de referencia que aparece abajo mena las horas de consultorio para hacer shazia jevon para que le vean. CLINICAS: [facility] [phone] [address] [facility] [phone] [address] [facility] [phone] [place] [address] [phone] [place] [address] [phone] [facility] [phone] OTTONIEL MALONEY MD Dec 12, 2016 13:42
--- NOTE | 2016-12-12 13:42 | ERD ---
ER Documentation Chief Complaint Chief Complaint R EYE VISION CLOUDY HPI 46y/o male patient with history of diabetes,presents to the emergency department c/o right eye foreign body sensation associated with blurred vision for 3 days after some dust got into his eye. pain is sharp, rated 6/10. Denies headache, fever, chills, N/V/D. No history of previous episodes. Treatment attempted: None ROS All systems reviewed and are negative except as per history of present illness. Medications Home Meds Active Scripts Hydrocodone/Acetaminophen ([place] 5-325 Tablet) 1 Each Tablet, 1 EACH PO TID, # 12 TAB Prov:OTTONIEL CABRAL MD 12/12/16 Tobramycin-Dexamethasone* (Tobradex* Ophth) 0.3%-0.1% Soln, 1 DROP LEFT EYE Q2HWA for 7 Days, EA Prov:OTTONIEL CABRAL MD 12/12/16 Lactulose* (Lactulose*) 10 Gm/15 Ml Solution, 10 GM PO BID for 5 Days, #150 ML Prov:HENRY CHAPARRO MD 11/30/16 Furosemide* (Lasix*) 20 Mg Tablet, 20 MG PO DAILY for 5 Days, #5 TAB Prov:HENRY CHAPARRO MD 11/30/16 Ondansetron Hcl* (Zofran*) 4 Mg Tablet, 4 MG PO Q8 for 3 Days, TAB Prov:SAAD CHILDRESS DO 11/07/16 Famotidine* (Pepcid*) 20 Mg Tablet, 20 MG PO BID for 14 Days, TAB Prov:SAAD CHILDRESS DO 11/07/16 Pantoprazole* (Protonix*) 40 Mg Tablet.dr, 40 MG PO DAILY, #20 TAB Prov:SAAD CHILDRESS DO 11/07/16 Ranitidine Hcl* (Zantac*) 150 Mg Tablet, 150 MG PO QHS Y for EPIGASTRIC PAIN, # 30 TAB Prov:GABRIELE GARG PA-C 06/04/16 Acetaminophen* (Tylenol*) 325 Mg Tablet, 2 TAB PO Q6 Y for PAIN AND OR ELEVATED TEMP, #30 TAB Prov:GABRIELE GARG PA-C 06/04/16 Loratadine* (Claritin*) 10 Mg Tablet, 10 MG PO DAILY, #30 TAB Prov:GABRIELE GARG PA-C 06/04/16 Omeprazole* (Omeprazole*) 20 Mg Capsule., 20 MG PO DAILY, #30 Prov:GABRIELE GARG PA-C 06/04/16 Bacitracin* (Bacitracin Zinc Oint*) 28.35 Gm Oint, 1 APPLIC TOP BID for 5 Days, #1 TUB APPLI TO Prov:BRAD TORRES PA-C 03/01/16 Pantoprazole* (Protonix*) 40 Mg Tablet., 40 MG PO BID for 30 Days, TAB Prov:JAMAL MORALES NP 01/15/16 Multivitamins* (Theragran*) 1 Tab Tab, 1 TAB PO DAILY for 30 Days, TAB Prov:JAMAL MORALES NP 01/15/16 Insulin Glargine* (Lantus*) 100 Unit/Ml Soln, 18 UNIT SC QHS for 30 Days, #1 VIAL Prov:JAMAL MORALES NP 01/15/16 Furosemide* (Lasix*) 20 Mg Tablet, 20 MG PO DAILY for 30 Days, TAB Prov:JAMAL MORALES NP 16 Spironolactone* (Aldactone*) 50 Mg Tablet, 50 MG PO DAILY for 30 Days, TAB Prov:JAMAL MORALES NP 16 Lactulose* (Cephulac*) 20 Gm/30 Ml Soln, 20 GM PO Q8 for 30 Days Prov:JAMAL MORALES NP 01/15/16 Allergies Allergies: Coded Allergies: No Known Allergy (Unverified , 03/01/16) PMhx/Soc History of Surgery: No Anesthesia Reaction: No Hx Neurological Disorder: No Hx Respiratory Disorders: No Hx Cardiac Disorders: No Hx Psychiatric Problems: No Hx Miscellaneous Medical Probl: Yes (DM, liver issues does not know what he has ) Hx Alcohol Use: Yes Hx Substance Use: No Hx Tobacco Use: Yes Physical Exam Vitals Vital Signs Date Time Temp Pulse Resp B/P Pulse Ox O2 Delivery O2 Flow Rate FiO2 12/12/16 13:04 98.6 104 20 128/60 98 Physical Exam Const: Alert, hydrated, in mild distress Head: Atraumatic Eyes: OS: 3 mm abrasion at the 7 o'clock, with peripheral haziness. No dendritic ulcer seen ENT: Normal External Ears, Nose and Mouth. Neck: Full range of motion..~ No meningismus. Resp: Clear to auscultation bilaterally Cardio: Regular rate and rhythm, no murmurs Results 24 hrs Current Medications Medications (Trade) Dose Ordered Sig/Gallo Route PRN Reason Start Time Stop Time Status Last Admin Dose Admin Tobramycin/ Dexamethasone (Tobradex Oph Drop) 2 drop ONCE ONCE RIGHT EYE 12/12/16 14:30 12/12/16 14:31 DC 12/12/16 15:09 Procedures/MDM 46y/o male patient with a history of diabetes mellitus, alcohol abuse, presents to the ED c/o left eye pain and foreign body sensation for 3 days. Vital signs stable, Physical exam showed well-defined abrasion on the left cornea, with inflammatory changes. Differential diagnosis include but not limited to: Keratitis, corneal ulcer, herpetic ulcer, foreign body. Physical examination and clinical presentation consistent most likely with infected corneal abrasion. During the ED course the patient received treatment with TobraDex. Medical impression discussed with patient who agrees with management. The patient will be discharged home with a Rx for TobraDex. The patient was instructed to have a follow-up in 48 hours with her doctor or here in the ER If symptoms worsen then return to the ED immediately. Departure Diagnosis: Primary Impression: Infected corneal abrasion Condition: Stable Additional Instructions: Muchas oziel por [facility] para toro servicio. Esperamos que en toro visita a la juan carlos de emergencia toro problema medico haya sido solucionado y que se sienta mucho mejor. Para estar seguros que toro mejoria sigue en proceso, le pedimos el favor de hacer shazia jevon de seguimiento medico con toro doctor primario en los proximos 2-4 yun. Lleve con usted estos documentos y las medicinas recetadas. Si jimmy sintomas empeoran y no puede gunner a toro doctor, por favor regrese a juan carlos de emergencia. En iman que usted no tenga un mdico de atencin primaria: Llame al mdico o clnica comunitaria de referencia que aparece abajo mena las horas de consultorio para hacer shazia jevon para que le vean. CLINICAS: [facility] [phone] [address] [facility] [phone] [address] [facility] [phone] [address] [place] [address] [phone] [place] [address] [phone] [facility] [phone] OTTONIEL MALONEY MD Dec 12, 2016 13:42
--- NOTE | 2016-12-12 13:42 | ERD ---
ER Documentation Chief Complaint Chief Complaint R EYE VISION CLOUDY HPI 46y/o male patient with history of diabetes,presents to the emergency department c/o right eye foreign body sensation associated with blurred vision for 3 days after some dust got into his eye. pain is sharp, rated 6/10. Denies headache, fever, chills, N/V/D. No history of previous episodes. Treatment attempted: None ROS All systems reviewed and are negative except as per history of present illness. Medications Home Meds Active Scripts Hydrocodone/Acetaminophen ([place] 5-325 Tablet) 1 Each Tablet, 1 EACH PO TID, # 12 TAB Prov:OTTONIEL CABRAL MD 12/12/16 Tobramycin-Dexamethasone* (Tobradex* Ophth) 0.3%-0.1% Soln, 1 DROP LEFT EYE Q2HWA for 7 Days, EA Prov:OTTONIEL CABRAL MD 12/12/16 Lactulose* (Lactulose*) 10 Gm/15 Ml Solution, 10 GM PO BID for 5 Days, #150 ML Prov:HENRY CHAPARRO MD 11/30/16 Furosemide* (Lasix*) 20 Mg Tablet, 20 MG PO DAILY for 5 Days, #5 TAB Prov:HENRY CHAPARRO MD 11/30/16 Ondansetron Hcl* (Zofran*) 4 Mg Tablet, 4 MG PO Q8 for 3 Days, TAB Prov:SAAD CHILDRESS DO 11/07/16 Famotidine* (Pepcid*) 20 Mg Tablet, 20 MG PO BID for 14 Days, TAB Prov:SAAD CHILDRESS DO 11/07/16 Pantoprazole* (Protonix*) 40 Mg Tablet.dr, 40 MG PO DAILY, #20 TAB Prov:SAAD CHILDRESS DO 11/07/16 Ranitidine Hcl* (Zantac*) 150 Mg Tablet, 150 MG PO QHS Y for EPIGASTRIC PAIN, # 30 TAB Prov:GABRIELE GARG PA-C 06/04/16 Acetaminophen* (Tylenol*) 325 Mg Tablet, 2 TAB PO Q6 Y for PAIN AND OR ELEVATED TEMP, #30 TAB Prov:GABRIELE GARG PA-C 06/04/16 Loratadine* (Claritin*) 10 Mg Tablet, 10 MG PO DAILY, #30 TAB Prov:GABRIELE GARG PA-C 06/04/16 Omeprazole* (Omeprazole*) 20 Mg Capsule., 20 MG PO DAILY, #30 Prov:GABRIELE GARG PA-C 06/04/16 Bacitracin* (Bacitracin Zinc Oint*) 28.35 Gm Oint, 1 APPLIC TOP BID for 5 Days, #1 TUB APPLI TO Prov:BRAD TORRES PA-C 03/01/16 Pantoprazole* (Protonix*) 40 Mg Tablet., 40 MG PO BID for 30 Days, TAB Prov:JAMAL MORALES NP 01/15/16 Multivitamins* (Theragran*) 1 Tab Tab, 1 TAB PO DAILY for 30 Days, TAB Prov:JAMAL MORALES NP 01/15/16 Insulin Glargine* (Lantus*) 100 Unit/Ml Soln, 18 UNIT SC QHS for 30 Days, #1 VIAL Prov:JAMAL MORALES NP 01/15/16 Furosemide* (Lasix*) 20 Mg Tablet, 20 MG PO DAILY for 30 Days, TAB Prov:JAMAL MORALES NP 16 Spironolactone* (Aldactone*) 50 Mg Tablet, 50 MG PO DAILY for 30 Days, TAB Prov:JAMAL MORALES NP 16 Lactulose* (Cephulac*) 20 Gm/30 Ml Soln, 20 GM PO Q8 for 30 Days Prov:JAMAL MORALES NP 01/15/16 Allergies Allergies: Coded Allergies: No Known Allergy (Unverified , 03/01/16) PMhx/Soc History of Surgery: No Anesthesia Reaction: No Hx Neurological Disorder: No Hx Respiratory Disorders: No Hx Cardiac Disorders: No Hx Psychiatric Problems: No Hx Miscellaneous Medical Probl: Yes (DM, liver issues does not know what he has ) Hx Alcohol Use: Yes Hx Substance Use: No Hx Tobacco Use: Yes Physical Exam Vitals Vital Signs Date Time Temp Pulse Resp B/P Pulse Ox O2 Delivery O2 Flow Rate FiO2 12/12/16 13:04 98.6 104 20 128/60 98 Physical Exam Const: Alert, hydrated, in mild distress Head: Atraumatic Eyes: OS: 3 mm abrasion at the 7 o'clock, with peripheral haziness. No dendritic ulcer seen ENT: Normal External Ears, Nose and Mouth. Neck: Full range of motion..~ No meningismus. Resp: Clear to auscultation bilaterally Cardio: Regular rate and rhythm, no murmurs Results 24 hrs Current Medications Medications (Trade) Dose Ordered Sig/Gallo Route PRN Reason Start Time Stop Time Status Last Admin Dose Admin Tobramycin/ Dexamethasone (Tobradex Oph Drop) 2 drop ONCE ONCE RIGHT EYE 12/12/16 14:30 12/12/16 14:31 DC 12/12/16 15:09 Procedures/MDM 46y/o male patient with a history of diabetes mellitus, alcohol abuse, presents to the ED c/o left eye pain and foreign body sensation for 3 days. Vital signs stable, Physical exam showed well-defined abrasion on the left cornea, with inflammatory changes. Differential diagnosis include but not limited to: Keratitis, corneal ulcer, herpetic ulcer, foreign body. Physical examination and clinical presentation consistent most likely with infected corneal abrasion. During the ED course the patient received treatment with TobraDex. Medical impression discussed with patient who agrees with management. The patient will be discharged home with a Rx for TobraDex. The patient was instructed to have a follow-up in 48 hours with her doctor or here in the ER If symptoms worsen then return to the ED immediately. Departure Diagnosis: Primary Impression: Infected corneal abrasion Condition: Stable Additional Instructions: Muchas oziel por [facility] para toro servicio. Esperamos que en toro visita a la juan carlos de emergencia toro problema medico haya sido solucionado y que se sienta mucho mejor. Para estar seguros que toro mejoria sigue en proceso, le pedimos el favor de hacer shazia jevon de seguimiento medico con toro doctor primario en los proximos 2-4 yun. Lleve con usted estos documentos y las medicinas recetadas. Si jimmy sintomas empeoran y no puede gunner a toro doctor, por favor regrese a juan carlos de emergencia. En iman que usted no tenga un mdico de atencin primaria: Llame al mdico o clnica comunitaria de referencia que aparece abajo mena las horas de consultorio para hacer shazia jevon para que le vean. CLINICAS: [facility] [phone] [facility] [phone] [facility] [phone] [place] [phone] [place] [phone] [facility] [phone] OTTONIEL MALONEY MD Dec 12, 2016 13:42
[2016-12-12] MEDS ORDERED: TOBRAMYCIN/DEXAMETH 2.5 ML OPH RIGHT EYE ONE (14:30)
[2016-12-12] MEDS ORDERED: SDSTOBDEX LEFT EYE (15:28)
[2016-12-12] MEDS ORDERED: HYDR-906 PO (15:28)
== END 2016-12-12 15:39 | disposition home or self-care (01) ==
LOC: FTE 12:58
DX: S05.01XA Injury of conjunctiva and corneal abrasion without foreign body, right eye, initial encounter (principal); E11.9 Type 2 diabetes mellitus without complications; X58.XXXA Exposure to other specified factors, initial encounter; Y92.9 Unspecified place or not applicable; Z79.4 Long term (current) use of insulin; Z87.891 Personal history of nicotine dependence
CPT/HCPCS: Z7502; Z7610; 99284

== ENCOUNTER 2016-12-24 20:40 | Emergency (ER) | payer MEDICAID ==
[~2016-12-24] VITALS: Ht 165.1 cm; Wt 77.0 kg
[~2016-12-24 20:40] MED LIST changes: +HYDR-906 PO; +SDSTOBDEX LEFT EYE
[2016-12-24 21:02] VITALS: Ht 165.1 cm; Wt 77.0 kg
[2016-12-24] MEDS ORDERED: ONDANSETRON 4 MG INJ IV STA (23:50)
[2016-12-24] MEDS ORDERED: FAMOTIDINE 20 MG INJ IV STA (23:50)
[2016-12-24] MEDS ORDERED: SOD CHLORIDE 0.9% 1,000 ML IV STA (23:50)
--- NOTE | 2016-12-25 00:24 | ERD ---
ER Documentation Chief Complaint Chief Complaint abd pain x 1 day, nausea HPI 46-year-old male presents to emergency department for complaints of epigastric pain abdominal pain that started today with nausea. Patient's complaint of pain , sharp pain, 8/10 scale, not better with anything. Patient has history of liver cirrhosis. Patient states that he ate something this morning that started the pain. Patient denies any fever chills. Patient denies any flank pain ROS All systems reviewed and are negative except as per history of present illness. Medications Home Meds Active Scripts Ondansetron (Ondansetron Odt) 4 Mg Tab.rapdis, 4 MG PO Q6H Y for NAUSEA AND/OR VOMITING, #30 TAB Prov:CLAUDINE MENDEZ NP 12/25/16 Famotidine* (Pepcid*) 20 Mg Tablet, 20 MG PO BID, #60 TAB Prov:CLAUDINE MENDEZ NP 12/25/16 Hydrocodone/Acetaminophen ([place] 5-325 Tablet) 1 Each Tablet, 1 EACH PO TID, # 12 TAB Prov:OTTONIEL CABRAL MD 12/12/16 Tobramycin-Dexamethasone* (Tobradex* Ophth) 0.3%-0.1% Soln, 1 DROP LEFT EYE Q2HWA for 7 Days, EA Prov:OTTONIEL CABRAL MD 12/12/16 Lactulose* (Lactulose*) 10 Gm/15 Ml Solution, 10 GM PO BID for 5 Days, #150 ML Prov:HENRY CHAPARRO MD 11/30/16 Furosemide* (Lasix*) 20 Mg Tablet, 20 MG PO DAILY for 5 Days, #5 TAB Prov:HENRY CHAPARRO MD 11/30/16 Ondansetron Hcl* (Zofran*) 4 Mg Tablet, 4 MG PO Q8 for 3 Days, TAB Prov:SAAD CHILDRESS DO 11/07/16 Famotidine* (Pepcid*) 20 Mg Tablet, 20 MG PO BID for 14 Days, TAB Prov:SAAD CHILDRESS DO 11/07/16 Pantoprazole* (Protonix*) 40 Mg Tablet.dr, 40 MG PO DAILY, #20 TAB Prov:SAAD CHILDRESS DO 11/07/16 Ranitidine Hcl* (Zantac*) 150 Mg Tablet, 150 MG PO QHS Y for EPIGASTRIC PAIN, # 30 TAB Prov:GABRIELE GARG PA-C 06/04/16 Acetaminophen* (Tylenol*) 325 Mg Tablet, 2 TAB PO Q6 Y for PAIN AND OR ELEVATED TEMP, #30 TAB Prov:GABRIELE GARG PA-C 06/04/16 Loratadine* (Claritin*) 10 Mg Tablet, 10 MG PO DAILY, #30 TAB Prov:GABRIELE GARG PA-C 06/04/16 Omeprazole* (Omeprazole*) 20 Mg Capsule., 20 MG PO DAILY, #30 Prov:GABRIELE GARG PA-C 06/04/16 Bacitracin* (Bacitracin Zinc Oint*) 28.35 Gm Oint, 1 APPLIC TOP BID for 5 Days, #1 TUB APPLI TO Prov:BRAD TORRES PA-C 03/01/16 Pantoprazole* (Protonix*) 40 Mg Tablet.dr, 40 MG PO BID for 30 Days, TAB Prov:JAMAL MORALES NP 01/15/16 Multivitamins* (Theragran*) 1 Tab Tab, 1 TAB PO DAILY for 30 Days, TAB Prov:JAMAL MORALES NP 01/15/16 Insulin Glargine* (Lantus*) 100 Unit/Ml Soln, 18 UNIT SC QHS for 30 Days, #1 VIAL Prov:JAMAL MORALES NP 01/15/16 Furosemide* (Lasix*) 20 Mg Tablet, 20 MG PO DAILY for 30 Days, TAB Prov:JAMAL MORALES NP 01/15/16 Spironolactone* (Aldactone*) 50 Mg Tablet, 50 MG PO DAILY for 30 Days, TAB Prov:JAMAL MORALES NP 01/15/16 Lactulose* (Cephulac*) 20 Gm/30 Ml Soln, 20 GM PO Q8 for 30 Days Prov:JAMAL MORALES NP 01/15/16 Allergies Allergies: Coded Allergies: No Known Allergy (Unverified , 03/01/16) PMhx/Soc Medical and Surgical Hx: pt denies Surgical Hx History of Surgery: No Anesthesia Reaction: No Hx Neurological Disorder: No Hx Respiratory Disorders: No Hx Cardiac Disorders: Yes (HTN, DYSLIPIDEMIA) Hx Psychiatric Problems: No Hx Miscellaneous Medical Probl: Yes (DM, liver issues does not know what he has ) Hx Alcohol Use: Yes (Social) Hx Substance Use: No Hx Tobacco Use: Yes Smoking Status: Current every day smoker FmHx Family History: No coronary disease, No diabetes, No other Physical Exam Vitals Vital Signs Date Time Temp Pulse Resp B/P Pulse Ox O2 Delivery O2 Flow Rate FiO2 12/24/16 21:02 98.6 105 20 119/77 99 Physical Exam GENERAL: The patient is well developed and appropriate for usual state of health, in no apparent distress. CHEST: Clear to auscultation bilaterally. There are no rales, wheezes or rhonchi. HEART: Regular rate and rhythm. No murmurs, clicks, rubs or gallops. No S3 or S4. ABDOMEN: Soft, nontender and nondistended. Good bowel sounds. No rebound or guarding. No gross peritonitis. No gross organomegaly or masses. No Dominguez sign or McBurney point tenderness. BACK: No midline or flank tenderness. EXTREMITIES: Equal pulses bilaterally. There is no peripheral clubbing, cyanosis or edema. No focal swelling or erythema. Full range of motion. Grossly neurovascularly intact. NEURO: Alert and oriented. Cranial nerves 2-12 intact. Motor strength in all 4 extremities with 5/5 strength. Sensation grossly intact. Normal speech and gait. SKIN: There is no apparent rash or petechia. The skin is warm and dry. HEMATOLOGIC AND LYMPHATIC: There is no evidence of excessive bruising or lymphedema. No gross cervical, axillary, or inguinal lymphadenopathy. Result Diagram: 12/25/16 0015 12/25/16 0015 Results 24 hrs Laboratory Tests Test 12/24/16 00:06 12/25/16 00:15 12/25/16 02:33 Urine Color STRAW Urine Clarity CLEAR Urine pH 6.0 Urine Specific [place] 1.026 Urine Ketones NEGATIVEmg/dL Urine Nitrite NEGATIVEmg/dL Urine Bilirubin NEGATIVEmg/dL Urine Urobilinogen NEGATIVEmg/dL Urine Leukocyte Esterase NEGATIVELeu/ul Urine Hemoglobin NEGATIVEmg/dL Urine Glucose 3+mg/dL Urine Total Protein NEGATIVEmg/dl White Blood Count 6.210^3/ul Red Blood Count 3.8510^6/ul Hemoglobin 7.8g/dl Hematocrit 27.1% Mean Corpuscular Volume 70.4fl Mean Corpuscular Hemoglobin 20.3pg Mean Corpuscular Hemoglobin Concent 28.8g/dl Red Cell Distribution Width 22.5% Platelet Count 00086^3/UL Mean Platelet Volume 10.7fl Neutrophils % 40.1% Lymphocytes % 19.8% Monocytes % 16.2% Eosinophils % 21.9% Basophils % 1.5% Nucleated Red Blood Cells % 0.0/100WBC Neutrophils # 2.510^3/ul Lymphocytes # 1.210^3/ul Monocytes # 1.010^3/ul Eosinophils # 1.410^3/ul Basophils # 0.110^3/ul Nucleated Red Blood Cells # 0.010^3/ul Sodium Level 132mmol/L Potassium Level 4.3mmol/L Chloride Level 99mmol/L Carbon Dioxide Level 25mmol/L Anion Gap 12 Blood Urea Nitrogen 5mg/dl Creatinine 0.54mg/dl Glucose Level 615mg/dl Calcium Level 8.5mg/dl Total Bilirubin 0.8mg/dl Direct Bilirubin 0.00mg/dl Indirect Bilirubin 0.8mg/dl Aspartate Amino Transf (AST/SGOT) 36IU/L Alanine Aminotransferase (ALT/SGPT) 34IU/L Alkaline Phosphatase 499IU/L Total Protein 7.9g/dl Albumin 2.7g/dl Globulin 5.20g/dl Albumin/Globulin Ratio 0.51 Lipase 261U/L Bedside Glucose 353mg/dL Current Medications Medications (Trade) Dose Ordered Sig/Gallo Route PRN Reason Start Time Stop Time Status Last Admin Dose Admin Sodium Chloride (NS) 1,000 ml @ 1,000 mls/hr Q1H STAT IV 12/24/16 23:50 12/25/16 00:49 DC 12/25/16 00:36 Ondansetron HCl (Zofran Inj) 4 mg ONCE STAT IV 12/24/16 23:50 12/24/16 23:52 DC 12/25/16 00:37 Famotidine (Pepcid Iv) 20 mg ONCE STAT IV 12/24/16 23:50 12/24/16 23:52 DC 12/25/16 00:37 Insulin Aspart (Novolog Insulin Pen) 10 unit ONCE ONCE SC 12/25/16 01:30 12/25/16 01:31 DC 12/25/16 01:40 Insulin Human Lispro 8 unit 8 unit ONCE ONCE SC 12/25/16 01:42 12/25/16 01:56 DC Sodium Chloride (NS) 1,000 ml @ 1,000 mls/hr Q1H ONCE IV 12/25/16 02:00 12/25/16 02:59 DC 12/25/16 01:56 Insulin Aspart (Novolog Insulin Pen) 8 unit ONCE ONCE SC 12/25/16 02:00 12/25/16 02:01 DC 12/25/16 02:00 Patient was given Zofran here in the emergency department. After treatment, patient was able to tolerate po fluids here in the emergency department without any vomiting. There is no signs and symptoms of dehydration. Patient was given medication for pain here in emergency department, after treatment, patient verbalized feeling much better. Patient's pain is improved. Normal saline IV bolus was given here in emergency department for rehydration, patient tolerated IV fluids. PROCEDURE: CT abdomen and pelvis without intravenous contrast. CLINICAL INDICATION: Pain. TECHNIQUE: CT of the abdomen/pelvis was performed utilizing axial images with reconstructions in sagittal and coronal planes. The administered radiation dose is CTDI 5 mGy, DLP 321 mGy-cm. One or more of the following dose reduction techniques were used: automated exposure control, adjustment of the mA and/or kV according to patient size and/or use of iterative reconstruction technique. DICOM images are available. COMPARISON: 01/13/2016 FINDINGS: Visualized Chest: Coronary artery calcifications are noted. Abdomen: The spleen, pancreas, gallbladder,and adrenal glands are unremarkable. The liver has diffusely nodular contours compatible with cirrhosis. Extensive upper abdominal varices are present, especially in the gastroesophageal region. There is mild intra-abdominal ascites. The kidneys are without hydronephrosis. No definite urinary calculi are seen. There is no evidence of bowel obstruction. The appendix is normal. No intra- abdominal free air is seen. Some mesenteric fat infiltrative changes are seen throughout the abdomen. There is likely some diffuse small bowel thickening. There is no evidence of intra-abdominal adenopathy or free fluid. Pelvis: There is ascites within the pelvis. The urinary bladder is unremarkable. No pelvic adenopathy is identified. The prostate is unremarkable. Osseous structures: Unremarkable. IMPRESSION: Cirrhotic liver with extensive upper abdominal and gastroesophageal varices. Intra-abdominal ascites and diffuse mesenteric edema likely due to third spacing. Bowel wall thickening likely due to third spacing and / or liver disease. RPTAT: HIKT .Garrett Hathaway MD, Date Time Electronically viewed and signed by .Garrett Hathaway MD, on 12/25/2016 00:58 .T/ CC: CLAUDINE MENDEZ NP . I Discussed this case with my attending physician, , patient has chronic liver disease, and hyperglycemia is from uncontrolled diabetes, at this time, patient is not in diabetic ketoacidosis, as per Dr. Rouse's recommendation, patient will be given 18 units of subcutaneous insulin 2 L of fluid will recheck blood sugar. Procedures/MDM Medical Decision Making: Symptoms of abdominal pain nonspecific at this time, possible from the growing ascites, this time, no protuberant belly, draining of fluid from the abdomen not necessary at this time. Patient has hyperglycemia, most likely from uncontrolled diabetes. This was controlled here in the emergency department. No symptoms of diabetic ketoacidosis. There is low suspicion for abdominal emergencies at this time. Patients abdominal exam is normal at this time. Patients radiology exam does not show any abdominal emergencies at this time. There is low suspicion for appendicitis, cholecystitis , abdominal aortic aneurysms or peritonitis at this time. There is low suspicion for sepsis. Patient appears well and is hemodynamically stable. Plan was discussed and agreed with my attending physician, Dr. Rouse. Patient's diabetic symptoms have stabilized here in the emergency department and appear appropriate for outpatient management. No evidence at this time of diabetic ketoacidosis, hyperosmolar syndrome, or severe systemic infection. Disposition: Home. Condition: Stable Prescription Pepcid, Zofran, controlled diabetes with primary care doctor. Instructions: Patient is advised to take medications as prescribed. Patient is advised to rest, increase fluid intake and do brat diet for next 1-2 days and progress as tolerated. Patient is advised that if symptoms are worse, severe abdominal pain, uncontrolled vomiting, high fever, severe flank pain, worst signs and symptoms, to return to the emergency department immediately. Otherwise, patient can follow up with primary care doctor in 5-7 days. Disclaimer: Inadvertent spelling and grammatical errors are likely due to EHR/ dictation software use and do not reflect on the overall quality of patient care. Also, please note that the electronic time recorded on this note does not necessarily reflect the actual time of the patient encounter. Departure Diagnosis: Primary Impression: Abdominal pain Abdominal location: epigastric Qualified Code: R10.13 - Epigastric pain Additional Impression: Hyperglycemia Condition: Stable Patient Instructions: Abdominal Pain, Hyperglycemia (High Blood Sugar) Additional Instructions: Patient is advised to take medications as prescribed. Patient is advised to rest, increase fluid intake and do brat diet for next 1-2 days and progress as tolerated. Patient is advised that if symptoms are worse, severe abdominal pain , uncontrolled vomiting, high fever, severe flank pain, worst signs and symptoms , to return to the emergency department immediately. Otherwise, patient can follow up with primary care doctor in 5-7 days. CLAUDINE MENDEZ NP Dec 25, 2016 00:24
[2016-12-25 00:32] LABS: ADD UMIC NO; UR ASCORBIC ACID NEGATIVE (NEGATIVE); UR BILIRUBIN (Dip) NEGATIVE (NEGATIVE); UR BLOOD (Dip) NEGATIVE (NEGATIVE); UR CLARITY CLEAR (CLEAR); UR COLOR STRAW (YELLOW); UR GLUCOSE (Dip) 3+ mg/dL (NEGATIVE); UR KETONES (Dip) NEGATIVE (NEGATIVE); UR LEUKOCYTE ESTERASE (Dip) NEGATIVE Leu/ul (NEGATIVE); UR NITRITE (Dip) NEGATIVE (NEGATIVE); UR SPECIFIC GRAVITY (Dip) 1.026 (1.003-1.030); UR TOTAL PROTEIN (Dip) NEGATIVE (NEGATIVE); UR UROBILINOGEN (Dip) NEGATIVE (NEGATIVE)
[2016-12-25 00:51] LABS: ABNORMAL IP MESSAGE 1; BASOPHIL # 0.1 10^3/ul (0.0-0.1); BASOPHILS % 1.5 % (0.0-2.0); EOSINOPHILS # 1.4 10^3/ul (0.0-0.5); EOSINOPHILS % 21.9 % (0.0-7.0); HEMATOCRIT 27.1 % (42.0-52.0); HEMOGLOBIN 7.8 g/dl (14.0-18.0); LYMPHOCYTES # 1.2 10^3/ul (0.8-2.9); LYMPHOCYTES % 19.8 % (15.0-51.0); MEAN CORPUSCULAR HEMOGLOBIN 20.3 pg (29.0-33.0); MEAN CORPUSCULAR HGB CONC 28.8 g/dl (32.0-37.0); MEAN CORPUSCULAR VOLUME 70.4 fl (82.0-101.0); MEAN PLATELET VOLUME 10.7 fl (7.4-10.4); MONOCYTES % 16.2 % (0.0-11.0); NEUTROPHIL # 2.5 10^3/ul (1.6-7.5); NEUTROPHILS % 40.1 % (39.0-77.0); PLATELET COUNT 155 10^3/UL (140-415); POSITIVE DIFF @See below; RED BLOOD COUNT 3.85 10^6/ul (4.70-6.10); RED CELL DISTRIBUTION WIDTH 22.5 % (11.5-14.5); WHITE BLOOD COUNT 6.2 10^3/ul (4.8-10.8)
--- NOTE | 2016-12-25 00:59 | RADRPT ---
PROCEDURE: CT abdomen and pelvis without intravenous contrast. CLINICAL INDICATION: Pain. TECHNIQUE: CT of the abdomen/pelvis was performed utilizing axial images with reconstructions in s agittal and coronal planes. The administered radiation dose is CTDI 5 mGy, DLP 321 mGy-cm. One or mo re of the following dose reduction techniques were used: automated exposure control, adjustment of t he mA and/or kV according to patient size and/or use of iterative reconstruction technique. DICOM i mages are available. COMPARISON: 01/13/2016 FINDINGS: Visualized Chest: Coronary artery calcifications are noted. Abdomen: The spleen, pancreas, gallbladder,and adrenal glands are unremarkable. The liver has diffusely nod ular contours compatible with cirrhosis. Extensive upper abdominal varices are present, especially i n the gastroesophageal region. There is mild intra-abdominal ascites. The kidneys are without hydronephrosis. No definite urinary calculi are seen. There is no evidence of bowel obstruction. The appendix is normal. No intra-abdominal free air is seen. Some mesenteric fat infiltrative changes are seen throughout the abdomen. There is likely adam e diffuse small bowel thickening. There is no evidence of intra-abdominal adenopathy or free fluid. Pelvis: There is ascites within the pelvis. The urinary bladder is unremarkable. No pelvic adenopathy is alex ntified. The prostate is unremarkable. Osseous structures: Unremarkable. IMPRESSION: Cirrhotic liver with extensive upper abdominal and gastroesophageal varices. Intra-abdominal ascites and diffuse mesenteric edema likely due to third spacing. Bowel wall thickening likely due to third spacing and / or liver disease. RPTAT: HIKT .Garrett Hathaway MD, MD Date Time Electronically viewed and signed by .Garrett Hathaway MD, on 12/25/2016 00:58 .T/
[2016-12-25 01:08] LABS: ALBUMIN 2.7 g/dl (3.3-4.9); ALBUMIN/GLOBULIN RATIO 0.51; BILIRUBIN,INDIRECT 0.8 mg/dl (0-1.1); BILIRUBIN,TOTAL 0.8 mg/dl (0.2-1.3); CALCIUM 8.5 mg/dl (8.4-10.2); CREATININE 0.54 mg/dl (0.61-1.24); POTASSIUM 4.3 mmol/L (3.5-5.1); TOTAL PROTEIN 7.9 g/dl (6.1-8.1)
[2016-12-25] MEDS ORDERED: INSULIN ASPART [NOVOLOG] 3 ML PEN SC ONE ×2 (01:30→02:00)
[2016-12-25] MEDS ORDERED: INSULIN LISPRO 100 UNIT/ML VIAL SC ONE (01:42)
[2016-12-25] MEDS ORDERED: SOD CHLORIDE 0.9% 1,000 ML IV ONE (02:00)
[2016-12-25] MEDS ORDERED: FAMO-96 PO (02:54)
[2016-12-25] MEDS ORDERED: ONDA4TAB14 PO (02:54)
== END 2016-12-25 03:03 | disposition home or self-care (01) ==
LOC: FTE 20:40
DX: R10.13 Epigastric pain (principal); E11.65 Type 2 diabetes mellitus with hyperglycemia; I10 Essential (primary) hypertension; F17.210 Nicotine dependence, cigarettes, uncomplicated; Z79.4 Long term (current) use of insulin
CPT/HCPCS: 36415; 74176; 80053; 81003; 82962; 83690; 85025; 96372; 96374; 96375; J1815; J2405; J7030; Z7502; Z7610

== ENCOUNTER 2017-04-05 10:22 | Emergency (ER) | END 2017-04-05 13:07 | disposition home or self-care (01) ==

== ENCOUNTER 2017-04-11 21:44 | Emergency (ER) | END 2017-04-12 02:22 | disposition home or self-care (01) ==